=== PATIENT | female | born 1970 | race Caucasian/White ===

== ENCOUNTER → 2016-07-23 | Outpatient (CLI) | payer OTHER ==
[~2016-07-23] MED LIST: ACET500C PO; BIOT1TAB2 PO; BIOT50005 PO; BREX1TAB3 PO; CARI1CAP PO; CINN500C PO; CINN500C12 PO; CYCL1TAB29 PO; FOLI400T PO; GABA300C5 PO; GABA400C5 PO; GARL1CAP PO; GARL500C PO; GLIP10TA6 PO; IBUP200C PO; LISI10TA3 PO; MAPA500T13 PO; METF1000 PO; METO25TA3 PO; MULTCAP PO; MULTTAB24 PO; NORT50CA PO; NOVORP2 SQ
[2016-07-23 12:45] LABS: HEMOGLOBIN A1a 1.2 %; HEMOGLOBIN Ao 77.5 %; HEMOGLOBIN LA1C 2.9 %
== END ==
LOC: CLAB 08:27
PROVIDERS: ATTEND Physician Assistant Medical
DX: E11.9 Type 2 diabetes mellitus without complications (principal)
CPT/HCPCS: 36415; 83036

== ENCOUNTER → 2016-10-09 | Outpatient (CLI) | payer OTHER ==
[2016-10-09 09:30] LABS: HDL CHOLESTEROL 49.3 MG/DL (40.0-60.0)
== END ==
LOC: CLAB 08:38
PROVIDERS: ATTEND Family Medicine
DX: E78.5 Hyperlipidemia, unspecified (principal)
CPT/HCPCS: 36415; 80061

== ENCOUNTER → 2016-11-06 | Outpatient (CLI) | payer OTHER ==
[~2016-11-06] MED LIST changes: -ACET500C PO; -BIOT50005 PO; -BREX1TAB3 PO; -CINN500C PO; -GABA300C5 PO; -GARL1CAP PO; -MULTCAP PO
--- NOTE | 2016-11-06 10:26 | RADRPT ---
EXAM DATE/TIME: 11/06/2016 08:40 [facility] COMPARISON: No previous studies available for comparison. INDICATIONS : Right ovarian cyst. MEDICAL HISTORY : Ovarian cyst. Polycystic ovarian cyst syndrome. SURGICAL HISTORY : Michellulu janey 1998. ENCOUNTER: Initial ACUITY: 1 week PAIN SCORE: 0/10 LOCATION: Bilateral pelvis MEASUREMENTS: UTERUS: 9.3 x 5.4 x 4.1 cm ENDOMETRIAL STRIPE: 7 mm RIGHT OVARY: 3.2 x 4.9 x 2.3 cm LEFT OVARY: 2.6 x 3.0 x 3.0 cm FINDINGS: UTERUS: The myometrium has homogeneous echotexture without mass. RIGHT OVARY: Complex cystic mass in the right adnexa measures 5.0 x 3.2 x 2.3 cm. LEFT OVARY: The left ovary is not well-defined. There is a shadowing echogenic focus in the left adnexal region m easuring 2.1 x 1.4 x 1.9 cm. MISCELLANEOUS: No free fluid. CONCLUSION: 1. 5 cm cystic mass in the right adnexal region. Differential diagnosis includes ovarian cyst and cys tic ovarian neoplasm. 2. Left ovary not well-defined. Shadowing 2 cm hyperechogenicity in the left adnexa. Findings suggest possible dermoid. 3. Recommend transvaginal pelvic ultrasound the possible. If transvaginal study is not possible, and then MRI pelvis with contrast would be recommended.. Fei Duke MD on November 06, 2016 at 10:17 Board Certified Radiologist. This report was verified electronically.
== END ==
LOC: HRAD 08:25
PROVIDERS: ATTEND Family Medicine
DX: N83.201 Unspecified ovarian cyst, right side (principal)
CPT/HCPCS: 76856

== ENCOUNTER → 2016-11-11 | Outpatient (CLI) | payer OTHER ==
--- NOTE | 2016-11-11 12:47 | RADRPT ---
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 INDICATIONS : Mass. MEDICAL HISTORY : Hypertension. Diabetes mellitus type 2. Anxiety. Bi-polar. Depression. Polycystic ovarian syndrome. SURGICAL HISTORY : Abdominoplasty. Right knee cyst removal. ENCOUNTER: Subsequent ACUITY: 2 weeks PAIN SCORE: 2/10 LOCATION: Bilateral pelvis MEASUREMENTS: UTERUS: 8.0 x 4.7 x 3.6 cm ENDOMETRIAL STRIPE: 6 mm RIGHT OVARY: 6.5 x 3.0 x 2.1 cm LEFT OVARY: 4.1 x 3.3 x 2.0 cm FINDINGS: UTERUS: The myometrium has homogeneous echotexture without mass.There is a small nabothian cyst at the level of the cervix largest measures 1.6 cm. RIGHT OVARY: Ovary contains no mass or significant cystic lesion. LEFT OVARY: Ovary contains no mass or significant cystic lesion. MISCELLANEOUS: No free fluid. CONCLUSION: 1. No ovarian cyst identified. Blood flow is identified within both ovaries. 2. Small nabothian cyst in the region of the cervix. Ambrose Mir MD on November 11, 2016 at 12:39 Board Certified Radiologist. This report was verified electronically.
== END ==
LOC: HRAD 09:58
PROVIDERS: ATTEND Family Medicine
DX: N83.209 Unspecified ovarian cyst, unspecified side (principal)
CPT/HCPCS: 76830; 76856

== ENCOUNTER 2017-02-16 10:39 | Emergency (ER) | payer OTHER ==
[~2017-02-16] VITALS: Ht 180.3 cm; Wt 93.0 kg
[~2017-02-16 10:39] MED LIST changes: -BIOT1TAB2 PO; -CINN500C12 PO; -NOVORP2 SQ
[2017-02-16 10:42] VITALS: BP 119/70; PULSE 122; RESP 16; TEMP 97.9; O2SAT 98
[2017-02-16] MEDS ORDERED: IBUP800T23 PO (11:29)
[2017-02-16] MEDS ORDERED: CLIN1CAP5 PO (11:29)
[2017-02-16] MEDS ORDERED: PERI0.126 SWISH-SPIT (11:30)
[2017-02-16] MEDS ORDERED: IBUPROFEN 800 MG TAB PO ONE (11:30)
[2017-02-16] MEDS ORDERED: CLINDAMYCIN PHOS 600 MG/4 ML VIAL IM ONE (11:30)
--- NOTE | 2017-02-16 11:30 | PD ---
HPI Chief Complaint: Oral / Dental Pain or Problem Time Seen by Provider: 11:22 Travel History International Travel<30 days: No Contact w/Intl Traveler<30days: No Traveled to known affect area: No History of Present Illness HPI 46-year-old female presents to emergency Department with complaint of left lower dental pain and left lower facial swelling 2 days. Denies dental trauma. Denies fever, vomiting. Denies sore throat, difficulty swallowing. Has been taking ibuprofen for symptom management. Pain is aggravated with palpation, eating, drinking. Has no other medical complaints. Symptoms are moderate in severity. Allergies to adhesive and ticagrelor. No other modifying factors or associated signs and symptoms. PFSH Past Medical History Anxiety: Yes Depression: Yes Diabetes: Yes Past Surgical History Other Surgery: Yes (tummy tuck. lymph left arm) Social History Alcohol Use: Yes (RARE) Tobacco Use: No Substance Use: No Allergies-Medications (Allergen,Severity, Reaction): Coded Allergies: ticagrelor (Verified Allergy, Severe, Rash, 02/16/17) adhesive (Verified Allergy, Mild, 02/16/17) rash Reported Meds & Prescriptions Reported Meds & Active Scripts Active Peridex Liq (Chlorhexidine Gluconate (Mouth) Liq) 0.12% Soln 15 Ml SWISH-SPIT BID 10 Days Ibuprofen 800 Mg Tab 800 Mg PO Q6HR PRN Clindamycin (Clindamycin HCl) 150 Mg Cap 450 Mg PO Q6H 10 Days Flexeril (Cyclobenzaprine HCl) 10 Mg Tab 10 Mg PO TID Metoprolol Tartrate 25 Mg Tab 25 Mg PO BID Nortriptyline (Nortriptyline HCl) 50 Mg Cap 50 Mg PO HS Gabapentin 400 Mg Cap 400 Cap PO TID Glipizide 10 Mg Tab 20 Mg PO BIDAC Take 30 minutes before a meal Lisinopril 10 Mg Tab 10 Mg PO BID Metformin (Metformin HCl) 1,000 Mg Tab 1,000 Mg PO BIDPC With meals Reported Multi For Her (Multiple Vitamins W/ Minerals) 1 Tab Tab 1 Tab PO DAILY Garlic Oil (Garlic) 500 Mg Cap 1,000 Mg PO DAILY Mapap Extra Strength (Acetaminophen) 500 Mg Tab 1,000 Mg PO Q4-6H PRN Vraylar (Cariprazine) 1.5 Mg Cap 1.5 Mg PO DAILY Folic Acid 400 Mcg Tab 400 Mcg PO DAILY Ibuprofen 200 Mg Cap 800 Mg PO DAILY PRN Review of Systems Except as stated in HPI: all other systems reviewed are Neg Physical Exam Narrative GENERAL: Well-nourished, well-developed female patient, in no acute distress; afebrile, nontoxic-appearing SKIN: Warm and dry. HEAD: Atraumatic. Normocephalic. Left lower minimal facial edema; without erythema; with tenderness on palpation. No lymphadenopathy. EYES: Pupils equal and round. No scleral icterus. No injection or drainage. ENT: Mucosa pink and moist. Airway patent. MOUTH: Mucous membranes moist, no lesions, tongue and gums appear normal. Tooth #19 with tenderness on palpation. Surrounding gingiva is without erythema , edema, drainage. No obvious abscess noted. NECK: Trachea midline. No lymphadenopathy. CARDIOVASCULAR: Regular rate. RESPIRATORY: No accessory muscle use. GASTROINTESTINAL: Obese. MUSCULOSKELETAL: No obvious deformities. No clubbing. No cyanosis. No edema. NEUROLOGICAL: Awake and alert. Oriented 3. No obvious cranial nerve deficits. Motor grossly within normal limits. Normal speech. PSYCHIATRIC: Appropriate mood and affect; insight and judgment normal. Data Data Last Documented VS Vital Signs Date Time Temp Pulse Resp B/P (MAP) Pulse Ox O2 Delivery O2 Flow Rate FiO2 02/16/17 10:42 97.9 122 16 119/70 (86) 98 Orders Orders Clindamycin Inj (Cleocin Inj) (02/16/17 11:30) Ibuprofen (Motrin) (02/16/17 11:30) [facility] Medical Decision Making Medical Screen Exam Complete: Yes Emergency Medical Condition: Yes Medical Record Reviewed: Yes Differential Diagnosis Dentalgia, dental cavities, dental abscess, gingivitis Narrative Course 46-year-old female with left lower tooth pain and dental cavities. Minimal left lower facial swelling. Patient is afebrile and nontoxic-appearing. Denies fever, vomiting. Clindamycin 600 mg IM administered in the ER. Ibuprofen administered in the ER. Clindamycin, ibuprofen, Peridex mouth rinse prescribed for home. Instructed patient to follow up with dentist. Emergency dental information sheet provided for follow-up. Instructed patient to follow up with primary care provider. Patient verbalizes understanding and agreement with treatment plan. Patient is medically cleared and stable for discharge. Discussed reasons to return to the emergency department. Patient agrees with treatment plan. The patients vital signs are stable and the patient is stable for outpatient follow-up and treatment. Patient discharged home, stable and in no acute distress. Diagnosis Primary Impression: Toothache Additional Impression: Dental cavities Referrals: [facility] Dentist Primary Care Physician Patient Instructions: Dental Abscess (ED), Dental Caries (ED), General Instructions, Toothache (ED) Departure Forms: Tests/Procedures, Work Release Enter return to work date: Feb 17, 2017 Additional Instructions: Complete full course of antibiotics Ibuprofen or Tylenol as directed and as needed to reduce pain and inflammation Use Peridex as directed for oral hygiene Warm or cool compresses to the affected area Follow-up with dentist Follow-up with primary care provider Return to emergency department immediately with worsening of symptomsn Med/Other Pt SpecificInfo: Prescription(s) given Scripts Chlorhexidine Gluconate (Mouth) Liq (Peridex Liq) 0.12% Soln 15 ML SWISH-SPIT BID for 10 Days, #473 ML 0 Refills Prov: Funmi Bowling 02/16/17 Ibuprofen (Ibuprofen) 800 Mg Tab 800 MG PO Q6HR Y for PAIN, #30 TAB 0 Refills Prov: Funmi Bowling 02/16/17 Clindamycin (Clindamycin) 150 Mg Cap 450 MG PO Q6H for Infection for 10 Days, CAP 0 Refills Prov: uFnmi Bowling 02/16/17 Disposition: 01 DISCHARGE HOME Condition: Stable Funmi Bowling Feb 16, 2017 11:30
[2017-02-16 11:32] VITALS: PULSE 98
== END 2017-02-16 11:55 | disposition home or self-care (01) ==
LOC: NETRI 10:39 → EDTENT 11:55
DX: K02.9 Dental caries, unspecified (principal); E11.9 Type 2 diabetes mellitus without complications
CPT/HCPCS: 96372